=== PATIENT | male | born 1955 | race Caucasian/White ===

== ENCOUNTER 2016-08-04 17:37 | Emergency (ER) | payer OTHER, MEDICARE ==
[2016-08-04 19:42] LABS: HEMOGLOBIN 13.8 gm/dl (14.0-17.5); RED BLOOD COUNT 4.12 M/UL (4.20-5.50); WHITE BLOOD COUNT 10.2 K/UL (4.5-11.0)
[2016-08-04 22:35] LABS: ADENOVIRUS F 40/41 Not Detected (Negative); ASTROVIRUS Not Detected (Negative); CAMPYLOBACTER Not Detected (Negative); CRYPTOSPORIDIUM Not Detected (Negative); E.COLI 0157 Not Detected (Negative); ENTAMOEBA HISTOLYTICA Not Detected (Negative); ENTEROAGGREGATIVE E.COLI (EAEC Not Detected (Negative); ENTEROPATHOGENIC E.COLI (EPEC) Not Detected (Negative); ENTEROTOXIGENIC E.COLI (ETEC) Not Detected (Negative); GIARDIA LAMBLIA Not Detected (Negative); NOROVIRUS GI/GII Not Detected (Negative); PLESIOMONAS SHIGELLOIDES Not Detected (Negative); ROTOVIRUS A Not Detected (Negative); SALMONELLA Not Detected (Negative); SAPOVIRUS Not Detected (Negative); SHIG/ENTEROINVAS.ECOLI (EIEC) Not Detected (Negative); SHIGA-LIK TOX.PRO.E.COLI (STEC Not Detected (Negative); VIBRIO Not Detected (Negative); VIBRIO CHOLERAE Not Detected (Negative); YERSINIA ENTEROCOLITICA Not Detected (Negative)
[2016-08-05 07:27] LABS: CLOSTRIDIUM DIFFICILE TOX A/B DETECTED (Negative)
== END 2016-08-04 21:50 | disposition home or self-care (01) ==
LOC: ER1 17:37
PROVIDERS: Specialist/Technologist Athletic Trainer
DX: A04.7 Enterocolitis due to Clostridium difficile (principal); E11.22 Type 2 diabetes mellitus with diabetic chronic kidney disease; N18.9 Chronic kidney disease, unspecified; I12.9 Hypertensive chronic kidney disease with stage 1 through stage 4 chronic kidney disease, or unspecified chronic kidney disease; J44.9 Chronic obstructive pulmonary disease, unspecified; Z88.6 Allergy status to analgesic agent; Z87.891 Personal history of nicotine dependence
CPT/HCPCS: 36415; 80053; 81001; 83605; 83690; 85025; 87086; 87507; 89055; 96365; 99284; J7030

== ENCOUNTER 2016-09-04 16:04 | Emergency (ER) | payer OTHER | END 2016-09-04 19:26 | disposition home or self-care (01) | LOC: ER1 16:04 | DX: S16.1XXA Strain of muscle, fascia and tendon at neck level, initial encounter (principal); E11.9 Type 2 diabetes mellitus without complications; I10 Essential (primary) hypertension; V43.52XA Car driver injured in collision with other type car in traffic accident, initial encounter; Y92.410 Unspecified street and highway as the place of occurrence of the external cause; Z79.84 Long term (current) use of oral hypoglycemic drugs; Z88.6 Allergy status to analgesic agent | CPT/HCPCS: 70450; 71010; 72125; 72128; 99284 ==

== ENCOUNTER → 2021-11-21 | Outpatient (CLI) | payer OTHER ==
[~2021-11-21] MED LIST: AMLODIPINE BESYL5 MG PO; ATORVASTATIN CA20 MG PO; BRILINTA 90 MG90 MG PO; COZAAR25 MG PO; ECOTRIN81 MG PO; FISH OIL 1,0001 EACH PO; FLONASE 0.05% N16 GM; GLUCOTROL 10 MG10 MG PO; LOPRESSOR 25 MG25 MG PO; LOPRESSOR 50 MG50 MG PO; NITROGLYCERIN0.4 MG SL; PEPCID20 MG PO; PLAVIX 75 MG TA75 MG PO; SYMBICORT 160-1 INHA INH; VENTOLIN/PROVE0.5 ML INH
== END ==
LOC: EXRD 12:52
DX: N18.32 Chronic kidney disease, stage 3b (principal)
CPT/HCPCS: 76775